=== PATIENT | male | born 1980 | race Two or more races ===

== ENCOUNTER 2024-03-16 12:05 | Emergency (ER) | payer MEDICAID, SELFPAY ==
[2024-03-16 12:06] VITALS: BMI 27.3
[2024-03-16 12:12] VITALS: BP 135/87; PULSE 71; RESP 19; TEMP 36.8; O2SAT 98
--- NOTE | 2024-03-16 12:26 | PD.EDRME ---
Rapid Medical Screening Exam RME Arrival date/time: 03/16/24 12:05 This is a 43-year-old male who presents to the emergency department with complaints of right lower quadrant abdominal pain that radiates to his left side. I have greeted and performed a focused initial assessment of this patient. Initial appropriate labs ordered at this time. A comprehensive ED assessment and evaluation of the patient and analysis of all test and completion of medical decision making process will be conducted by additional ED provider. Chief Complaint: Urogenital-Male Time Seen by Provider: 03/16/24 12:25 Vital signs: Vital Signs Temperature 98.3 F 03/16/24 12:12 Pulse Rate 71 03/16/24 12:12 Respiratory Rate 19 03/16/24 12:12 Blood Pressure 135/87 H 03/16/24 12:12 Pulse Oximetry (%) 98 03/16/24 12:12 Oxygen Delivery Method Aerosol Mask 03/16/24 12:12
[2024-03-16 13:01] LABS: Basophils % (Auto) 1 % (0-2.5); Eosinophils # (Auto) 0.2 Thou/mm3 (0.0-0.5); Eosinophils % (Auto) 3 % (0-10); Hematocrit 44.2 % (41.0-53.0); Hemoglobin 15.5 g/dL (13.5-16.0); Immature Granulocytes % (Auto) 0 % (0-0); Immature Granulocytes Auto 0.03 Thou/mm3 (0.00-0.00); Lymphocytes # (Auto) 2.7 Thou/mm3 (1.0-4.8); Lymphocytes % (Auto) 37 % (10-50); Mean Corpuscular HGB Conc 35.1 g/dl (31.0-37.0); Mean Corpuscular Hemoglobin 28.8 pg (25.0-35.0); Mean Corpuscular Volume 82 fL (80-100); Monocytes # (Auto) 0.4 Thou/mm3 (0.0-0.8); Monocytes % (Auto) 6 % (0-12); Neutrophils % (Auto) 54 % (37-80); Nucleated Red Blood Cell % 0 /100 WBC (0); Platelet Count 202 Thou/mm3 (140-440); RDW Standard Deviation 36.6 fL (35.1-43.9); Red Blood Count 5.39 Miln/mm3 (4.50-5.90); White Blood Count 7.4 Thou/mm3 (3.8-10.6)
[2024-03-16 13:05] LABS: Collection Type, Urine Clean Catch; Squamous Epithelial Cell,Urine 0 /hpf (0-5)
--- NOTE | 2024-03-16 13:10 | XR_ITS ---
Examination: Abdomen sonogram, Limited Date and time of exam: March 16, 2024 1327 hours INDICATIONS: Right lower abdominal pain umbilical pain flank pain beginning 3 weeks ago Technique: Real-time messer scale transabdominal sonographic images of the upper abdomen obtained. Findings: No sonographic visualization appendix No umbilical hernia seen IMPRESSION: No sonographic visualization appendix No umbilical hernia demonstrated
[2024-03-16 13:13] LABS: Bilirubin,Urine Negative (Negative); Blood,Urine Negative (Negative); Clarity,Urine Clear (Clear/Hazy); Color,Urine Lt-Yellow (Lt Yel-Yel); Glucose, Urine 2+ (Negative); Ketones,Urine Negative (Negative); Leukocyte Esterase,Urine Negative (Negative); Nitrite,Urine Negative (Negative); Protein,Urine Negative (Neg - Trace); RBC,Urine 6 /hpf (0-3); Specific Gravity,Urine 1.026 (1.001-1.035); Urobilinogen,Urine Negative mg/dL (0.0-1.0); WBC,Urine 1 /hpf (0-5)
[2024-03-16 14:28] LABS: Alanine Aminotransferase 28 U/L (10-49); Albumin, Serum 4.7 gm/dL (3.5-5.0); Albumin/Globulin Ratio 1.5 (1.2-2.2); Alkaline Phosphatase 69 U/L (46-116); Anion Gap 6 (7-16); Aspartate Amino Transferase 20 U/L (0-34); BUN/Creatinine Ratio 14 Ratio (12-20); Blood Urea Nitrogen 15 mg/dL (9-23); Calcium 10.1 mg/dL (8.3-10.6); Calcium (Corrected) 10.1 mg/dL (8.5-10.1); Carbon Dioxide 29.3 mMol/L (20.0-31.0); Chloride 102 mMol/L (98-107); Creatinine (Component) 1.1 mg/dL (0.6-1.3); Estimated Creatinine Clearance 88.4 mL/min (>60); Globulin 3.1 gm/dL (2.3-3.5); Glucose 215 mg/dL (74-106); Lipase 42 U/L (12-53); Osmolality,Calculated 280 (275-295); Potassium 4.3 mMol/L (3.4-5.1); Sodium 137 mMol/L (136-145); Total Protein 7.8 gm/dL (5.7-8.2); eGFR > 60 See Note
--- NOTE | 2024-03-16 14:37 | EDNOTE_ITS ---
ED Male Genitalurinary RME/HPI General Chief complaint: Urogenital-Male Stated complaint: R FLANK PAIN AND ABDOMINAL PAIN X3 WEEKS Time Seen by Provider: 03/16/24 12:25 Arrival date/time: 03/16/24 12:05 RME / HPI RME / HPI Narrative: 43-year-old male patient was brought in for evaluation regarding right lower quadrant pain that are just to the left side, has been ongoing for the last 3 weeks, severity mild. Described as dull ache, it comes and goes. Patient denies any vomiting denies any nausea denies any fever. Denies any diarrhea or constipation denies any dysuria frequency or hematuria. Related Data Previous Rx's ?Medication ?Instructions ?Recorded dicyclomine 20 mg tablet 20 mg PO TID PRN abdominal pain 03/16/24 #30 tabs Allergies Allergy/AdvReac Type Severity Reaction Status Date / Time No Known Allergies Allergy Verified 03/16/24 12:08 Review of Systems Review of Systems Narrative Review of Systems: Review of system reviewed and within normal limits except mentioned in HPI ED Exam Narrative Physical exam: VITAL SIGNS: Reviewed. GENERAL APPEARANCE: Alert and interactive, follows commands, no acute distress, HEAD AND FACE: Non-traumatic. ENT: PERRL, pink conjunctivitis, eyelid no trauma, Mucous membrane moist. NECK: Supple, nontender, no nuchal rigidity. CHEST: No tenderness, no crepitus, no paradoxical movement, no retractions. LUNGS: Clear, well ventilated, symmetric, no rales, no wheezing, no ronchi, no stridor, good breath sounds bilaterally. HEART: Regular rate, regular rhythm, no murmur, no gallops. ABDOMEN: Soft, positive bowel sounds, nondistended, no guarding, nontender, no rebound, no masses, RECTAL: Deferred. GENITAL: Deferred. NEUROLOGICAL: Gross motor function intact sensory function intact, Appropriate for age. MUSCULOSKELETAL: low back nontender, full range of motion. EXTREMITIES: Nontender, full range of motion. SKIN: Color pink, dry, no rash, no lacerations, no abrasions, no contusions. LYMPHATICS: Deferred. Course Quality Measures none Orders Category Date Time Status US abdomen limited Stat Exams 03/16/24 13:10 Completed CBC Stat Lab 03/16/24 12:45 Completed Comprehensive Metabolic Panel Stat Lab 03/16/24 12:45 Results Lipase Stat Lab 03/16/24 12:45 Results Urinalysis Stat Lab 03/16/24 12:57 Completed Vital Signs Vital signs: Vital Signs Temperature 98.3 F 03/16/24 12:12 Pulse Rate 71 03/16/24 12:12 Respiratory Rate 19 03/16/24 12:12 Blood Pressure 135/87 H 03/16/24 12:12 Pulse Oximetry (%) 98 03/16/24 12:12 Oxygen Delivery Method Aerosol Mask 03/16/24 12:12 Urogenital - Male MDM Narrative MDM Narrative:: 43-year-old male patient was brought in for evaluation regarding right lower quadrant pain that are just to the left side, has been ongoing for the last 3 weeks, severity mild. Described as dull ache, it comes and goes. Patient denies any vomiting denies any nausea denies any fever. Denies any diarrhea or constipation denies any dysuria frequency or hematuria. Patient's workup today all came back normal no leukocytosis, urinalysis no UTI. Ultrasound of the abdomen showed no acute pathology. Results discussed with the patient. At this time I do not suspect any appendicitis. Patient is not having any pain on deep palpation of the right lower quadrant prior to discharge. Patient data External records reviewed:: None Clinical information provided by:: none Social determinants that could affect healthcare access:: none Patient has the following chronic illnesses:: None How is presenting disease/condition affected by chronic disease/condition?: no chronic disease Evaluation data The following diagnostics were reviewed and interpreted by me:: lab results and radiology exam(s) Lab and/or radiology exams considered but not ordered:: None Interpretation Summary: Patient's workup all came back normal no leukocytosis, no UTI ultrasound of the abdomen with no acute pathology. No visualization of appendix. Medications / Prescriptions Medications or Prescriptions considered but not ordered:: None Medication administrations:: None Consultations Consultation(s) initiated? (list below): No Diagnosis Urogenital Male Differential Diagnosis: urinary tract infection and other (Abdominal pain, appendicitis) Most likely diagnosis given after review of the tests above:: Abdominal pain Admission Indicated Admission indicated?: not indicated Admission Request Was there a request for admission?: No Disposition Plan Disposition Plan: Discharge Discharge Attestation Discharge Attestation: The patient was given an opportunity to ask questions and understood the discharge instructions. Discharge instructions specifically effects, indications for sooner follow up or return to the emergency department, and the expected course of current diagnosis. Patient condition: Stable Discharge Plan Plan Patient Disposition: HOME (Self Care) Disposition Comment: Stable Prescriptions/Referrals Prescriptions/Med Rec: New dicyclomine 20 mg tablet 20 mg PO TID PRN (Reason: abdominal pain) Qty: 30 0RF Referrals: Herbert Benedict MD [Primary Care Provider] - In 1 week Problem List Clinical Impression: Abdominal pain Patient/Caregiver Discharge Instructions Discharge Activity: activity as tolerated Education Materials: Abdominal Pain Additional Instructions: Thank you for the opportunity for serving you today. You are stable for discharged . You are advised to: Follow-up with your PCP in 1 to 2 days Return to ED for worsening of symptoms Increase oral fluids Take medication as prescribed Print Language: Occitan Stand Alone Forms: Radha Award Info., Patient Portal Info Letter PA/CAFE OR RESTAURANT MANAGER Supervising Physician SAMIR/CAFE OR RESTAURANT MANAGER Supervising Physician: MD Kanwal
[2024-03-16 14:43] LABS: Bilirubin,Total 0.5 mg/dL (0.3-1.2)
[2024-03-16 14:45] VITALS: BP 128/78; PULSE 78; RESP 16; TEMP 36.7; O2SAT 98
== END 2024-03-16 15:13 | disposition home or self-care (01) ==
PROVIDERS: Nurse Practitioner Primary Care; Emergency Provider Emergency Medicine; PCP Family Medicine
DX: R10.31 Right lower quadrant pain (principal)
CPT/HCPCS: 36415; 76705; 80053; 81001; 83690; 85025; 99284